=== PATIENT | male | born 1955 | race Caucasian/White ===

== ENCOUNTER → 2016-05-07 | Outpatient (REF) | payer OTHER ==
[~2016-05-07] MED LIST: /ADVA50050 INH; /WARF25TA OR; ADV250INH INH; ALBU17IN INH; AUGM875T27 PO; FLUT22IN INH; PERCOCET OR; TYLE325T5 PO; [UNRECOGNIZED DRUG - OTHER] PO
[2016-05-07 17:49] LABS: ALBUMIN 4.2 GM/DL (3.2-5.2); ALBUMIN/GLOBULIN RATIO 1.24 (1.00-1.93); ALKALINE PHOSPHATASE 66 U/L (45-117); ALT/SGPT 37 U/L (12-78); ANION GAP 9 MEQ/L (8-16); AST/SGOT 28 U/L (15-37); BLOOD UREA NITROGEN 11 MG/DL (7-18); CALCIUM LEVEL 9.1 MG/DL (8.8-10.2); CARBON DIOXIDE LEVEL 29 MEQ/L (21-32); CHLORIDE LEVEL 103 MEQ/L (98-107); CHOLESTEROL LEVEL 210 MG/DL (<200); CREATININE FOR GFR 1.04 MG/DL (0.70-1.30); GLOMERULAR FILTRATION RATE > 60.0 (>49); GLUCOSE, FASTING 97 MG/DL (80-110); POTASSIUM SERUM 4.6 MEQ/L (3.5-5.1); SODIUM LEVEL 141 MEQ/L (136-145); TOTAL PROTEIN 7.6 GM/DL (6.4-8.2); TRIGLYCERIDES LEVEL 71 MG/DL (<150)
== END ==
LOC: M SFHCCLAY 09:43
PROVIDERS: ATTEND Family Medicine
DX: Z00.00 Encounter for general adult medical examination without abnormal findings (principal)

== ENCOUNTER → 2017-05-10 | Outpatient (REF) | payer OTHER ==
[2017-05-10 12:11] LABS: ALBUMIN/GLOBULIN RATIO 1.18 (1.00-1.93); ALKALINE PHOSPHATASE 50 U/L (45-117); ALT/SGPT 32 U/L (12-78); ANION GAP 6 MEQ/L (8-16); AST/SGOT 27 U/L (7-37); BILIRUBIN,TOTAL 0.9 MG/DL (0.2-1.0); BLOOD UREA NITROGEN 9 MG/DL (7-18); CALCIUM LEVEL 8.6 MG/DL (8.8-10.2); CARBON DIOXIDE LEVEL 29 MEQ/L (21-32); CHLORIDE LEVEL 104 MEQ/L (98-107); CHOLESTEROL LEVEL 185 MG/DL (<200); CHOLESTEROL RISK RATIO 2.534 (<5); CREATININE FOR GFR 0.88 MG/DL (0.70-1.30); GLOMERULAR FILTRATION RATE > 60.0 (>49); GLUCOSE, FASTING 94 MG/DL (80-110); HDL CHOLESTEROL 73 MG/DL (>40); LDL CHOLESTEROL 100.8 MG/DL (<100); NON-HDL-C 112 MG/DL; POTASSIUM SERUM 4.9 MEQ/L (3.5-5.1); PSA SCREENING 2.13 NG/ML (< 4.0); SODIUM LEVEL 139 MEQ/L (136-145); TOTAL PROTEIN 7.4 GM/DL (6.4-8.2); TRIGLYCERIDES LEVEL 56 MG/DL (<150)
== END ==
LOC: M SFHCCLAY 09:30
DX: Z00.00 Encounter for general adult medical examination without abnormal findings (principal)
CPT/HCPCS: 84153

== ENCOUNTER → 2018-05-08 | Outpatient (REF) | payer BC ==
[2018-05-08 17:11] LABS: ALBUMIN 4.1 GM/DL (3.2-5.2); ALT/SGPT 39 U/L (12-78); BLOOD UREA NITROGEN 10 MG/DL (7-18); CALCIUM LEVEL 8.7 MG/DL (8.8-10.2); CARBON DIOXIDE LEVEL 28 MEQ/L (21-32); CHLORIDE LEVEL 103 MEQ/L (98-107); CHOLESTEROL LEVEL 204 MG/DL (<200); CREATININE FOR GFR 0.92 MG/DL (0.70-1.30); GLOMERULAR FILTRATION RATE > 60.0 (>49); GLUCOSE, FASTING 93 MG/DL (70-100); HDL CHOLESTEROL 85 MG/DL (>40); LDL CHOLESTEROL 107 MG/DL (<100); NON-HDL-C 119 MG/DL; POTASSIUM SERUM 4.7 MEQ/L (3.5-5.1); SODIUM LEVEL 138 MEQ/L (136-145); TOTAL PROTEIN 7.7 GM/DL (6.4-8.2); TRIGLYCERIDES LEVEL 58 MG/DL (<150)
== END ==
LOC: M SFHCCLAY 10:29
PROVIDERS: ATTEND Family Medicine
DX: Z00.00 Encounter for general adult medical examination without abnormal findings (principal)
CPT/HCPCS: 80053; 80061; G0103

== ENCOUNTER 2018-07-04 08:33 | Day surgery (SDC) | payer BC ==
[~2018-07-04] VITALS: Ht 180.3 cm; Wt 86.2 kg
[~2018-07-04 08:33] MED LIST changes: +ADV500INH INH; +BALS75CA PO; +FLUT11IN INH; +LIDOCAINE 2% INJ 100 MG/5 ML SDV (FOR ANES.) As Ordered ONE; +PROPOFOL 200 MG/20 ML VIAL As Ordered ONE
[2018-07-04] MEDS ORDERED: NS 1,000 ML IV ONE (08:45)
--- NOTE | 2018-07-04 09:28 | ROOR ---
Patient Name: Elmer Quarles Procedure Date: 07/04/2018 9:06 AM Date of : 1955 Age: 62 Room: [facility] Gender: Male Note Status: Finalized Procedure: Colonoscopy Indications: Follow-up of chronic ulcerative proctosigmoiditis Providers: Henrique BUCHANAN MD Referring MD: MARY ROBISON DO Requestelijah Provider: Medicines: Monitored Anesthesia Care Complications: No immediate complications. Procedure: Pre-Anesthesia Assessment: - The heart rate, respiratory rate, oxygen saturations, blood pressure, adequacy of pulmonary ventilation, and response to care were monitored throughout the procedure. The Colonoscope was introduced through the anus and advanced to 10 cm into the ileum. The colonoscopy was performed without difficulty. The patient tolerated the procedure well. The quality of the bowel preparation was good. Findings: The perianal and digital rectal examinations were normal. The terminal ileum appeared normal. Inflammation was found in a continuous and circumferential pattern from the anus to the descending colon. This was mild in severity, and when compared to previous examinations, the findings are worsened. Biopsies were taken with a cold forceps for histology. The exam was otherwise without abnormality on direct and retroflexion views. Impression: - Proctosigmoid ulcerative colitis. Inflammation was found from the anus to the descending colon. This was mild in severity, worsened compared to previous examinations. Biopsied. - Mild diverticulosis in the descending colon. - The examination of the colon was otherwise normal on direct and retroflexion views. - The examined portion of the ileum was normal. Recommendation: - Repeat colonoscopy in 2 years for surveillance. Henrique Buchanan MD Henrique BUCHANAN MD 07/04/2018 9:28:19 AM This report has been signed electronically. Number of Addenda: 0 Note Initiated On: 07/04/2018 9:06 AM Estimated Blood Loss: Estimated blood loss: none.
[2018-07-04 09:45] VITALS: BP 191/97
== END 2018-07-04 10:05 | disposition home or self-care (01) ==
LOC: M OPP 08:33
PROVIDERS: ATTEND Internal Medicine Gastroenterology
DX: K51.30 Ulcerative (chronic) rectosigmoiditis without complications (principal)

== ENCOUNTER → 2018-09-01 | Outpatient (REF) | payer BC ==
[~2018-09-01] MED LIST changes: -/ADVA50050 INH; -/WARF25TA OR; +ADVA1AER2 INH; +COUM1TAB18 OR; -LIDOCAINE 2% INJ 100 MG/5 ML SDV (FOR ANES.) As Ordered ONE; +OXYC1TAB23 OR; -PERCOCET OR; -PROPOFOL 200 MG/20 ML VIAL As Ordered ONE
== END ==
LOC: M LAB LCGH 13:46
PROVIDERS: ATTEND Physician Assistant
DX: L57.0 Actinic keratosis (principal)

== ENCOUNTER → 2018-09-15 | Outpatient (CLI) | payer BC ==
--- NOTE | 2018-09-15 18:01 | REP ---
REASON: Left sided foot pain and foot drop. COMPARISON: None. The ankle brachial index is 1.2. [facility] 108.0 cm/s triphasic Profunda 69.3 cm/s triphasic SFA proximal 102.0 cm/s triphasic SFA mid 112.0 cm/s triphasic SFA distal 93.8 cm/s triphasic Popliteal 51.9 cm/s triphasic REGGIE proximal 56.8 cm/s monophasic Tibioperoneal trunk 99.4 cm/s triphasic Posterior tibial artery proximal 77.0 cm/s triphasic Distal 75.8 cm/s biphasic Anterior tibial artery distal 54.5 cm/s biphasic Electronically Signed by Alberto Huitron DO 09/15/2018 06:10 P
== END ==
LOC: M RAD 12:52
PROVIDERS: ATTEND Surgery Vascular Surgery
DX: M79.605 Pain in left leg (principal); M21.372 Foot drop, left foot

== ENCOUNTER → 2018-11-23 | Outpatient (CLI) | payer BC ==
--- NOTE | 2018-11-27 13:45 | REP ---
Low-dose lung screening CT of the chest: Comparison is the CT of the chest with IV contrast dated 08/12/2009. The study is performed without IV contrast. Images are presented at lung windowing only. There are no lung masses or nodules. This is unchanged. There are no infiltrates or pleural effusions. This is unchanged. There is a right hilar calcified granuloma. This is unchanged. Impression: Category 1 low-dose lung screening CT. The probability of malignancy is less than 1%. Depending on risk factors, consider annual follow-up low-dose lung screening CT. Electronically Signed by Doroteo Benito MD 11/27/2018 01:36 P
== END ==
LOC: M RAD 12:55
PROVIDERS: ATTEND Family Medicine
DX: Z12.2 Encounter for screening for malignant neoplasm of respiratory organs (principal); Z87.891 Personal history of nicotine dependence

== ENCOUNTER → 2019-02-16 | Outpatient (REF) | payer BC ==
[2019-02-16 18:57] LABS: BASO # 0.1 10^3/uL (0.0-0.2); BASO % 0.8 % (0.0-1.0); EOS # 0.2 10^3/uL (0.0-0.5); EOS % 1.9 % (0.0-3.0); HEMATOCRIT 47.3 % (42.0-52.0); HEMOGLOBIN 15.6 g/dl (13.5-17.5); LYMPH # 2.6 10^3/uL (1.5-5.0); LYMPH % 26.2 % (24.0-44.0); MEAN CORPUSCULAR HEMOGLOBIN 34.1 pg (27.0-33.0); MEAN CORPUSCULAR VOLUME 103.3 fl (80.0-96.0); MONO # 0.7 10^3/uL (0.0-0.8); NEUTROPHILS # 6.3 10^3/uL (1.5-8.5); NEUTROPHILS % 62.9 % (36.0-66.0); PLATELET COUNT, AUTOMATED 322 10^3/uL (150-450); RED BLOOD COUNT 4.58 10^6/uL (4.30-6.10)
[2019-02-16 19:04] LABS: ALBUMIN 3.9 GM/DL (3.2-5.2); ALT/SGPT 33 U/L (12-78); BILIRUBIN,TOTAL 0.7 MG/DL (0.2-1.0); BLOOD UREA NITROGEN 15 MG/DL (7-18); C REACTIVE PROTEIN QUANTITATIV 0.34 MG/DL (0.00-0.30); CALCIUM LEVEL 9.1 MG/DL (8.8-10.2); CARBON DIOXIDE LEVEL 30 MEQ/L (21-32); CHLORIDE LEVEL 105 MEQ/L (98-107); CREATININE FOR GFR 0.99 MG/DL (0.70-1.30); GLOMERULAR FILTRATION RATE > 60.0 (>49); GLUCOSE, FASTING 111 MG/DL (70-100); POTASSIUM SERUM 4.9 MEQ/L (3.5-5.1); RHEUMATOID FACTOR QUANT < 10.0 IU/ML (<15.0); SODIUM LEVEL 138 MEQ/L (136-145); TOTAL PROTEIN 7.2 GM/DL (6.4-8.2)
[2019-02-16 19:35] LABS: ERYTHROCYTE SEDIMENTATION RATE 2 mm/hr (0-20)
[2019-02-20 00:11] LABS: ANA (HEP2) Positive (.); CYCLIC CITRULLINATED PEPTIDE 8 units (0-19)
== END ==
LOC: M SFHCCLAY 11:11
PROVIDERS: ATTEND Family Medicine
DX: I10 Essential (primary) hypertension (principal); M25.541 Pain in joints of right hand

== ENCOUNTER → 2019-02-16 | Outpatient (CLI) | payer BC ==
--- NOTE | 2019-02-16 13:49 | REP ---
REASON: Hand pain. COMPARISON: 04/02/2015 There is no change in the appearance of the right hand compared to the prior exam. There is no acute abnormality. In a couple of phalangeal joints, degenerative change is again seen involving the 3rd digit, status quo. There is no prominent marginal osteophytosis. There are no marginal erosions. There is no periarticular osteopenia. IMPRESSION: No significant change from the prior exam other than technique with degenerative changes as described above. Electronically Signed by Alberto Huitron DO 02/16/2019 04:17 P
== END ==
LOC: M CLY 11:32
PROVIDERS: ATTEND Family Medicine
DX: M25.541 Pain in joints of right hand (principal)

== ENCOUNTER → 2019-11-06 | Outpatient (REF) | payer MEDICARE, BC ==
[2019-11-06 16:56] LABS: BASO # 0.1 10^3/uL (0.0-0.2); BASO % 0.6 % (0.0-1.0); EOS # 0.1 10^3/uL (0.0-0.5); EOS % 1.3 % (0.0-3.0); HEMATOCRIT 47.3 % (42.0-52.0); HEMOGLOBIN 15.8 g/dl (13.5-17.5); LYMPH # 2.6 10^3/uL (1.5-5.0); LYMPH % 25.2 % (24.0-44.0); MEAN CORPUSCULAR HEMOGLOBIN 33.2 pg (27.0-33.0); MEAN CORPUSCULAR HGB CONC 33.4 g/dl (32.0-36.5); MEAN CORPUSCULAR VOLUME 99.4 fl (80.0-96.0); MONO # 0.8 10^3/uL (0.0-0.8); MONO % 8.2 % (0.0-5.0); NEUTROPHILS # 6.5 10^3/uL (1.5-8.5); NEUTROPHILS % 63.5 % (36.0-66.0); PLATELET COUNT, AUTOMATED 360 10^3/uL (150-450); RED BLOOD COUNT 4.76 10^6/uL (4.30-6.10); WHITE BLOOD COUNT 10.2 10^3/uL (4.0-10.0)
[2019-11-06 17:15] LABS: ALBUMIN 3.9 GM/DL (3.2-5.2); ALT/SGPT 43 U/L (12-78); BILIRUBIN,TOTAL 1.3 MG/DL (0.2-1.0); BLOOD UREA NITROGEN 9 MG/DL (7-18); CALCIUM LEVEL 9.2 MG/DL (8.8-10.2); CARBON DIOXIDE LEVEL 29 MEQ/L (21-32); CHLORIDE LEVEL 105 MEQ/L (98-107); CHOLESTEROL LEVEL 187 MG/DL (<200); CHOLESTEROL RISK RATIO 2.968 (<5); CREATININE FOR GFR 0.91 MG/DL (0.70-1.30); GLOMERULAR FILTRATION RATE > 60.0 (>49); GLUCOSE, FASTING 97 MG/DL (70-100); HDL CHOLESTEROL 63 MG/DL (>40); LDL CHOLESTEROL 101 MG/DL (<100); NON-HDL-C 124 MG/DL; SODIUM LEVEL 137 MEQ/L (136-145); TOTAL PROTEIN 7.2 GM/DL (6.4-8.2); TRIGLYCERIDES LEVEL 117 MG/DL (<150)
== END ==
LOC: M SFHCCLAY 10:30
PROVIDERS: ATTEND Family Medicine
DX: K51.00 Ulcerative (chronic) pancolitis without complications (principal); I10 Essential (primary) hypertension; E78.2 Mixed hyperlipidemia; Z98.890 Other specified postprocedural states

== ENCOUNTER → 2020-03-17 | Outpatient (CLI) | payer MEDICARE, BC ==
--- NOTE | 2020-03-17 14:02 | REP ---
INDICATION: ENCOUNTER FOR SCREENING FOR LUNG CA. COMPARISON: 11/23/2018 and 08/12/2009 TECHNIQUE: Axial noncontrast images from the thoracic inlet to the upper abdomen using low-dose lung screening technique (LDCT). As per the protocol, only lung window images were sent to the read station for interpretation. FINDINGS: A 4 mm sized pleural base nodule has developed in the left lower lobe. A discoid opacity has developed in the inferior right middle lobe. Limited evaluation of the mediastinum and pulmonary sarah show no significant changes from the prior exams. Limited evaluation of the imaged upper abdomen and imaged osseous structures show no significant changes from the prior exams. There are no pleural or pericardial effusions. Early cylindrical bronchiectasis may be developing. This is seen particularly in the lung bases. IMPRESSION: 1. Left lower lobe nodule as described above. Lung rads category 3. Follow-up is recommended in 6 months as per the revised Fleischner society criteria. 2. Discoid opacity in the right middle lobe likely representing subsegmental atelectatic change. This can be followed up in 6 months as well. <Electronically signed by Alberto Huitron > 03/17/20 [id number]
== END ==
LOC: M RAD 12:57
PROVIDERS: ATTEND Family Medicine
DX: Z12.2 Encounter for screening for malignant neoplasm of respiratory organs (principal); R91.1 Solitary pulmonary nodule; Z87.891 Personal history of nicotine dependence

== ENCOUNTER → 2020-09-16 | Outpatient (CLI) | payer MEDICARE, BC ==
--- NOTE | 2020-09-16 15:11 | REP ---
INDICATION: LT LOWER LOBE PULMONARY NODULE COMPARISON: Multiple TECHNIQUE: Standard helical technique without intravenous contrast administration FINDINGS: Limited evaluation of the mediastinum and pulmonary sarah show no evidence of a mass or adenopathy. There are no pleural or pericardial effusions. The imaged upper abdomen shows cholelithiasis and diffuse low density throughout the hepatic parenchyma. Bone window technique throughout the examination shows a slight grade 1 superior endplate compression deformity of T6. The age of this cannot be determined by this exam. It cannot be compared to the prior low-dose screening CT examinations of the lungs. Since no sagittal recons were performed on the standard CT of the chest of 08/12/2009 I cannot compared to that examination either. Evaluation of the lung cabezas shows no new abnormal nodules, masses, or opacities. There are stable chronic subsegmental atelectatic changes in the inferior right middle lobe status quo. IMPRESSION: 1. Cholelithiasis. 2. Diffuse fatty infiltration of the liver. 3. Age undetermined mild grade 1 superior endplate compression deformity of T6 as described above. 4. Stable lung cabezas. Lung rads category 2 can now be assigned. <Electronically signed by Alberto Huitron > 09/16/20 [id number]
== END ==
LOC: M RAD 14:40
PROVIDERS: ATTEND Family Medicine
DX: R91.1 Solitary pulmonary nodule (principal)

== ENCOUNTER → 2020-11-11 | Outpatient (REF) | payer MEDICARE, BC ==
[2020-11-11 16:21] LABS: BASO # 0.1 10^3/uL (0.0-0.2); BASO % 0.8 % (0.0-1.0); EOS # 0.2 10^3/uL (0.0-0.5); EOS % 1.6 % (0.0-3.0); HEMATOCRIT 46.5 % (42.0-52.0); HEMOGLOBIN 15.4 g/dl (13.5-17.5); LYMPH # 3.2 10^3/uL (1.5-5.0); LYMPH % 25.8 % (24.0-44.0); MEAN CORPUSCULAR HEMOGLOBIN 32.7 pg (27.0-33.0); MEAN CORPUSCULAR HGB CONC 33.1 g/dl (32.0-36.5); MEAN CORPUSCULAR VOLUME 98.7 fl (80.0-96.0); MONO # 0.9 10^3/uL (0.0-0.8); MONO % 7.6 % (2.0-8.0); NEUTROPHILS # 7.7 10^3/uL (1.5-8.5); NEUTROPHILS % 62.8 % (36.0-66.0); PLATELET COUNT, AUTOMATED 323 10^3/uL (150-450); RED BLOOD COUNT 4.71 10^6/uL (4.30-6.10); WHITE BLOOD COUNT 12.2 10^3/uL (4.0-10.0)
[2020-11-11 16:37] LABS: ALBUMIN 3.8 GM/DL (3.2-5.2); ALT/SGPT 48 U/L (12-78); BILIRUBIN,TOTAL 0.7 MG/DL (0.2-1.0); BLOOD UREA NITROGEN 9 MG/DL (7-18); CALCIUM LEVEL 8.8 MG/DL (8.8-10.2); CARBON DIOXIDE LEVEL 26 MEQ/L (21-32); CHLORIDE LEVEL 105 MEQ/L (98-107); CHOLESTEROL LEVEL 187 MG/DL (<200); CHOLESTEROL RISK RATIO 3.339 (<5); CREATININE FOR GFR 0.88 MG/DL (0.70-1.30); GLOMERULAR FILTRATION RATE > 60.0 (>49); GLUCOSE, FASTING 88 MG/DL (70-100); HDL CHOLESTEROL 56 MG/DL (>40); LDL CHOLESTEROL 111 MG/DL (<100); NON-HDL-C 131 MG/DL; POTASSIUM SERUM 5.4 MEQ/L (3.5-5.1); SODIUM LEVEL 137 MEQ/L (136-145); TOTAL PROTEIN 7.2 GM/DL (6.4-8.2); TRIGLYCERIDES LEVEL 101 MG/DL (<150)
== END ==
LOC: M SFHCCLAY 11:25
PROVIDERS: ATTEND Family Medicine
DX: E78.2 Mixed hyperlipidemia (principal); I10 Essential (primary) hypertension; Z12.5 Encounter for screening for malignant neoplasm of prostate
CPT/HCPCS: 80053; 80061; 85025; G0103

== ENCOUNTER → 2020-11-19 | Outpatient (REF) | payer MEDICARE, BC | LOC: M SMT 16:42 | PROVIDERS: ATTEND Nurse Practitioner Family | DX: N39.0 Urinary tract infection, site not specified (principal) | CPT/HCPCS: 87086; G0463 ==

== ENCOUNTER → 2020-12-02 | Outpatient (CLI) | payer MEDICARE, BC ==
--- NOTE | 2020-12-02 12:39 | REPPI ---
INDICATION: ELEVATED PSA. COMPARISON: None. TECHNIQUE: Transrectal prostate ultrasound performed, with ultrasound guidance provided for Dr. Farley who performed ultrasound-guided biopsy. FINDINGS: Prostate measures 4.2 x 2.6 x 4.3 cm, total volume 25.1 mL. Echotexture is diffusely heterogeneous with scattered small cysts and calcifications. No peripheral zone mass is seen. The seminal vesicles appear symmetrical. IMPRESSION: Prostate ultrasound as above, ultrasound guidance was provided for Dr. Farley who performed ultrasound-guided biopsy of the prostate. <Electronically signed by Doroteo Monk > 12/02/20 [id number]
== END ==
LOC: M PLAIMG 09:55
PROVIDERS: ATTEND Urology
DX: C61 Malignant neoplasm of prostate (principal)
CPT/HCPCS: 55700; 76942; G0416

== ENCOUNTER → 2021-01-19 | Outpatient (REF) | payer MEDICARE, BC | LOC: M LAB REF 14:11 | PROVIDERS: ATTEND Physician Assistant | DX: C44.622 Squamous cell carcinoma of skin of right upper limb, including shoulder (principal); D49.2 Neoplasm of unspecified behavior of bone, soft tissue, and skin | CPT/HCPCS: 11102; 88305; G0463 ==

== ENCOUNTER → 2021-04-01 | Outpatient (REF) | payer MEDICARE, BC | LOC: M SFHCCLAY 10:21 | PROVIDERS: ATTEND Urology | DX: C61 Malignant neoplasm of prostate (principal) ==

== ENCOUNTER → 2021-07-02 | Outpatient (REF) | payer MEDICARE, BC | LOC: M SFHCCLAY 10:17 | PROVIDERS: ATTEND Urology | DX: C61 Malignant neoplasm of prostate (principal) ==

== ENCOUNTER → 2021-09-22 | Outpatient (CLI) | payer MEDICARE, BC | LOC: M RAD 13:04 | PROVIDERS: ATTEND Family Medicine | DX: R91.1 Solitary pulmonary nodule (principal); I70.0 Atherosclerosis of aorta; K80.20 Calculus of gallbladder without cholecystitis without obstruction; K76.0 Fatty (change of) liver, not elsewhere classified ==

== ENCOUNTER → 2021-10-13 | Outpatient (REF) | payer MEDICARE, BC | LOC: M SFHCCLAY 10:34 | PROVIDERS: ATTEND Urology | DX: C61 Malignant neoplasm of prostate (principal) ==

== ENCOUNTER → 2021-11-23 | Outpatient (CLI) | payer MEDICARE, BC | LOC: M CLY 13:49 | PROVIDERS: ATTEND Family Medicine | DX: M79.672 Pain in left foot (principal); M77.32 Calcaneal spur, left foot ==

== ENCOUNTER → 2022-01-06 | Outpatient (REF) | payer MEDICARE, BC ==
[2022-01-06 17:51] LABS: BASO # 0.1 10^3/uL (0.0-0.2); BASO % 0.8 % (0.0-1.0); EOS # 0.2 10^3/uL (0.0-0.5); HEMATOCRIT 46.6 % (42.0-52.0); HEMOGLOBIN 15.6 g/dl (13.5-17.5); LYMPH # 3.4 10^3/uL (1.5-5.0); MEAN CORPUSCULAR HEMOGLOBIN 33.3 pg (27.0-33.0); MEAN CORPUSCULAR HGB CONC 33.5 g/dl (32.0-36.5); MEAN CORPUSCULAR VOLUME 99.4 fl (80.0-96.0); MONO % 8.4 % (2.0-8.0); NEUTROPHILS # 7.2 10^3/uL (1.5-8.5); NEUTROPHILS % 59.8 % (36.0-66.0); PLATELET COUNT, AUTOMATED 313 10^3/uL (150-450); RED BLOOD COUNT 4.69 10^6/uL (4.30-6.10)
[2022-01-06 18:30] LABS: ALBUMIN 3.6 GM/DL (3.2-5.2); ALT/SGPT 38 U/L (12-78); BILIRUBIN,TOTAL 0.5 MG/DL (0.2-1.0); BLOOD UREA NITROGEN 13 MG/DL (7-18); CARBON DIOXIDE LEVEL 28 MEQ/L (21-32); CHLORIDE LEVEL 104 MEQ/L (98-107); CHOLESTEROL LEVEL 191 MG/DL (<200); CHOLESTEROL RISK RATIO 4.658 (<5); CREATININE FOR GFR 0.99 MG/DL (0.70-1.30); GLOMERULAR FILTRATION RATE > 60.0 (>49); GLUCOSE, FASTING 96 MG/DL (70-100); HDL CHOLESTEROL 41 MG/DL (>40); LDL CHOLESTEROL 83 MG/DL (<100); NON-HDL-C 150 MG/DL; POTASSIUM SERUM 5.4 MEQ/L (3.5-5.1); PROSTATIC SPECIFIC AG MONITOR 2.59 NG/ML (< 4.00); SODIUM LEVEL 134 MEQ/L (136-145); TOTAL PROTEIN 6.9 GM/DL (6.4-8.2); TRIGLYCERIDES LEVEL 333 MG/DL (<150)
== END ==
LOC: M SFHCCLAY 10:12
PROVIDERS: ATTEND Urology
DX: C61 Malignant neoplasm of prostate (principal); I10 Essential (primary) hypertension; E78.2 Mixed hyperlipidemia

== ENCOUNTER → 2022-01-26 | Outpatient (REF) | payer MEDICARE, BC | LOC: M SMT 12:54 | PROVIDERS: ATTEND Urology | DX: C61 Malignant neoplasm of prostate (principal) ==

== ENCOUNTER → 2022-02-19 | Outpatient (REF) | payer MEDICARE, BC ==
[~2022-02-19] MED LIST changes: +BACT800T5 PO; +COLA100C5 PO; +FLUT1INH3 INH; +GING250C PO; +LOSA100T45 PO; +PERCOCET PO; +PROP40TA62 PO; +VENTAER INH
[2022-02-19 11:41] LABS: HEMATOCRIT 47.2 % (42.0-52.0); HEMOGLOBIN 15.8 g/dl (13.5-17.5); MEAN CORPUSCULAR HEMOGLOBIN 33.7 pg (27.0-33.0); MEAN CORPUSCULAR HGB CONC 33.5 g/dl (32.0-36.5); MEAN CORPUSCULAR VOLUME 100.6 fl (80.0-96.0); PLATELET COUNT, AUTOMATED 334 10^3/uL (150-450); RED BLOOD COUNT 4.69 10^6/uL (4.30-6.10); WHITE BLOOD COUNT 9.6 10^3/uL (4.0-10.0)
[2022-02-19 11:51] LABS: INR 0.94; PROTHROMBIN TIME 12.8 SECONDS (12.5-14.5)
[2022-02-19 11:52] LABS: PARTIAL THROMBOPLASTIN TIME 27.2 SECONDS (24.8-34.2)
[2022-02-19 12:13] LABS: BLOOD UREA NITROGEN 10 MG/DL (7-18); CALCIUM LEVEL 9.4 MG/DL (8.8-10.2); CARBON DIOXIDE LEVEL 29 MEQ/L (21-32); CHLORIDE LEVEL 106 MEQ/L (98-107); CREATININE FOR GFR 0.81 MG/DL (0.70-1.30); GLOMERULAR FILTRATION RATE > 60.0 (>49); GLUCOSE, FASTING 101 MG/DL (70-100); POTASSIUM SERUM 5.4 MEQ/L (3.5-5.1); SODIUM LEVEL 138 MEQ/L (136-145)
== END ==
LOC: M LABSMT 09:25
PROVIDERS: ATTEND Urology
DX: Z01.818 Encounter for other preprocedural examination (principal); C61 Malignant neoplasm of prostate

== ENCOUNTER → 2022-02-19 | Outpatient (CLI) | payer MEDICARE, BC | LOC: M CLY 09:45 | PROVIDERS: ATTEND Urology | DX: Z01.818 Encounter for other preprocedural examination (principal); C61 Malignant neoplasm of prostate ==

== ENCOUNTER → 2022-02-23 | Outpatient (REF) | payer MEDICARE, BC | LOC: M LABSMT 09:46 | PROVIDERS: ATTEND Urology | DX: C61 Malignant neoplasm of prostate (principal); Z01.818 Encounter for other preprocedural examination; N39.0 Urinary tract infection, site not specified ==

== ENCOUNTER → 2022-02-28 | Outpatient (CLI) | payer MEDICARE, BC ==
[~2022-02-28] MED LIST changes: -BACT800T5 PO; -COLA100C5 PO; -PERCOCET PO
== END ==
LOC: M LABSMTC 10:28
PROVIDERS: ATTEND Anesthesiology
DX: Z01.812 Encounter for preprocedural laboratory examination (principal); Z20.822 Contact with and (suspected) exposure to COVID-19

== ENCOUNTER 2022-03-03 07:30 | Inpatient (IN) | payer MEDICARE, BC ==
[~2022-03-03] VITALS: Ht 177.8 cm; Wt 72.5 kg
[2022-03-03] VITALS (7 sets, daily range): BP systolic 132–144; BP diastolic 85–93
[~2022-03-03 07:30] MED LIST changes: +HEPARIN SOD (PORCINE) 5000UNITS/ML 1ML VIAL/SYRINGE SQ ONE; +ceFAZolin SOD 2 GM in IV 1 EA IV ONE
[2022-03-03] MEDS ORDERED: propofoL 200 MG/20 ML VIAL As Ordered ONE (10:02)
[2022-03-03] MEDS ORDERED: LIDOCAINE 2% 100MG/5ML SDV (FOR ANES.) As Ordered ONE (10:02)
[2022-03-03] MEDS ORDERED: fentaNYL 250 MCG/5 ML INJECTION As Ordered ONE (10:02)
[2022-03-03] MEDS ORDERED: MIDAZOLAM INJ 2MG/2ML VIAL (J2250 PER 1MG) As Ordered ONE (10:02)
[2022-03-03] MEDS ORDERED: ROCURONIUM BROMIDE 50 MG/5 ML VIAL As Ordered ONE ×2 (10:02→11:50)
[2022-03-03] MEDS ORDERED: METOCLOPRAMIDE INJ 10MG/2ML VIAL (J2765 PER 1) As Ordered ONE (10:10)
[2022-03-03] MEDS ORDERED: LR 1,000 ML IV SCH ×2 (10:15→14:20)
[2022-03-03] MEDS ORDERED: LIDOCAINE 1% SDV 30ML VIAL As Ordered ONE (10:42)
[2022-03-03] MEDS ORDERED: BUPIVACAINE HCL 0.25% 30ML VIAL As Ordered ONE (10:42)
[2022-03-03] MEDS ORDERED: ACETAMINOPHEN TAB 650MG DOSE (2X325MG) PO PRN (10:50)
[2022-03-03] MEDS ORDERED: NS 1,000 ML IV SCH (10:50)
[2022-03-03] MEDS ORDERED: ALBUTEROL 90 MCG/ACT 8GM HFA INHALER INH PRN (10:50)
[2022-03-03] MEDS ORDERED: ONDANSETRON 4MG 2ML VIAL IV PRN ×2 (10:50→14:20)
[2022-03-03] MEDS ORDERED: PERCOCET 5MG/325MG TAB PO PRN ×2 (10:50)
[2022-03-03] MEDS ORDERED: LACRILUBE (AKWA TEARS) OPHTH OINT 3.5 GM As Ordered ONE (11:12)
[2022-03-03] MEDS ORDERED: dexameTHASONE 4 MG/ML 1ML VIAL (J1100 PER 1MG) As Ordered ONE (11:49)
[2022-03-03] MEDS ORDERED: ONDANSETRON 4MG 2ML VIAL As Ordered ONE (11:49)
[2022-03-03] MEDS ORDERED: SUGAMMADEX SODIUM 500 MG/5 ML VIAL (BRIDION) As Ordered ONE (11:49)
[2022-03-03] MEDS ORDERED: KETOROLAC 60MG 2ML VIAL As Ordered ONE (11:49)
[2022-03-03] MEDS ORDERED: ACETAMINOPHEN 1000MG 100ML IV BTL (OFIRMEV) (J0131 PER 10MG) As Ordered ONE (11:49)
[2022-03-03] MEDS ORDERED: HYDROmorphone HCL 2MG/ML 1ML VIAL As Ordered ONE (11:50)
[2022-03-03] MEDS ORDERED: DESFLURANE 240 ML INHALANT As Ordered ONE (13:39)
[2022-03-03] MEDS ORDERED: fentaNYL 100 MCG/2 ML INJECTION IV PRN (14:20)
[2022-03-03] MEDS ORDERED: oxyCODONE 5MG TAB PO PRN (14:20)
[2022-03-03] MEDS ORDERED: HYDROMORPHONE HCL 0.5 MG/ 0.5 ML SYRINGE (J1170 PER 1) IV PRN (14:20)
[2022-03-03 14:55] LABS: HEMATOCRIT 43.3 % (42.0-52.0); MEAN CORPUSCULAR HEMOGLOBIN 33.3 pg (27.0-33.0); MEAN CORPUSCULAR HGB CONC 32.3 g/dl (32.0-36.5); MEAN CORPUSCULAR VOLUME 103.1 fl (80.0-96.0); PLATELET COUNT, AUTOMATED 269 10^3/uL (150-450); WHITE BLOOD COUNT 12.4 10^3/uL (4.0-10.0)
[2022-03-03 15:57] LABS: BLOOD UREA NITROGEN 12 MG/DL (7-18); CALCIUM LEVEL 8.7 MG/DL (8.8-10.2); CARBON DIOXIDE LEVEL 27 MEQ/L (21-32); CHLORIDE LEVEL 104 MEQ/L (98-107); GLOMERULAR FILTRATION RATE > 60.0 (>49); GLUCOSE, FASTING 126 MG/DL (70-100); POTASSIUM SERUM 4.7 MEQ/L (3.5-5.1); SODIUM LEVEL 135 MEQ/L (136-145)
[2022-03-03] MEDS: ceFAZolin SOD 1 GM in D5W MINI-BAG PLUS 50 ML IV SCH (18:44)
[2022-03-03] MEDS ORDERED: ENTER DRUG NAME HERE (PATIENT'S OWN MED) PO SCH (21:00)
[2022-03-03] MEDS: DOCUSATE SODIUM 100MG CAPSULE PO SCH (21:37)
[2022-03-03] MEDS: HEPARIN SOD (PORCINE) 5000UNITS/ML 1ML VIAL/SYRINGE SC SCH (21:38)
[2022-03-04 00:38] VITALS: BP 127/86
[2022-03-04] MEDS: ceFAZolin SOD 1 GM in D5W MINI-BAG PLUS 50 ML IV SCH (03:36)
[2022-03-04 04:38] VITALS: BP 136/83
[2022-03-04] MEDS: HEPARIN SOD (PORCINE) 5000UNITS/ML 1ML VIAL/SYRINGE SC SCH ×2 (06:02→14:00)
[2022-03-04 06:23] LABS: HEMATOCRIT 37.3 % (42.0-52.0); HEMOGLOBIN 12.6 g/dl (13.5-17.5); MEAN CORPUSCULAR HEMOGLOBIN 34.5 pg (27.0-33.0); MEAN CORPUSCULAR HGB CONC 33.8 g/dl (32.0-36.5); MEAN CORPUSCULAR VOLUME 102.2 fl (80.0-96.0); PLATELET COUNT, AUTOMATED 265 10^3/uL (150-450); RED BLOOD COUNT 3.65 10^6/uL (4.30-6.10); WHITE BLOOD COUNT 13.6 10^3/uL (4.0-10.0)
[2022-03-04 07:02] LABS: BLOOD UREA NITROGEN 12 MG/DL (7-18); CALCIUM LEVEL 8.3 MG/DL (8.8-10.2); CARBON DIOXIDE LEVEL 25 MEQ/L (21-32); CHLORIDE LEVEL 103 MEQ/L (98-107); CREATININE FOR GFR 0.86 MG/DL (0.70-1.30); GLOMERULAR FILTRATION RATE > 60.0 (>49); GLUCOSE, FASTING 130 MG/DL (70-100); POTASSIUM SERUM 4.5 MEQ/L (3.5-5.1); SODIUM LEVEL 135 MEQ/L (136-145)
[2022-03-04 08:00] VITALS: BP 137/84
[2022-03-04] MEDS: DOCUSATE SODIUM 100MG CAPSULE PO SCH ×2 (08:48→08:53)
[2022-03-04 08:49] VITALS: BP 136/83
[2022-03-04] MEDS ORDERED: LOSARTAN 50MG TABLET PO SCH (09:00)
[2022-03-04] MEDS ORDERED: PROPRANOLOL 20 MG TAB PO SCH (09:00)
[2022-03-04] MEDS ORDERED: ENTER DRUG NAME HERE (PATIENT'S OWN MED) INH SCH (09:00)
[2022-03-04 12:38] VITALS: BP 143/90
[2022-03-04] MEDS ORDERED: BACT800T5 PO (16:12)
[2022-03-04] MEDS ORDERED: PERCOCET PO (16:12)
[2022-03-04] MEDS ORDERED: COLA100C5 PO (16:12)
== END 2022-03-04 17:20 | disposition home or self-care (01) | DRG 707 ==
LOC: M OR 09:51 → M MSPAV 15:38
PROVIDERS: ADMIT Urology; ATTEND Urology
PROC: 07BC4ZX Excision of Pelvis Lymphatic, Percutaneous Endoscopic Approach, Diagnostic (ICD-10-PCS; 2022-03-03)
PROC: 8E0W4CZ Robotic Assisted Procedure of Trunk Region, Percutaneous Endoscopic Approach (ICD-10-PCS; 2022-03-03)
PROC: 0VT04ZZ Resection of Prostate, Percutaneous Endoscopic Approach (ICD-10-PCS; principal; 2022-03-03 12:30)
DX: C61 Malignant neoplasm of prostate (principal); K51.00 Ulcerative (chronic) pancolitis without complications; J44.9 Chronic obstructive pulmonary disease, unspecified; E78.5 Hyperlipidemia, unspecified; I10 Essential (primary) hypertension; R91.1 Solitary pulmonary nodule; Z90.49 Acquired absence of other specified parts of digestive tract; Z79.899 Other long term (current) drug therapy; Z87.891 Personal history of nicotine dependence; Z88.8 Allergy status to other drugs, medicaments and biological substances

== ENCOUNTER → 2022-04-05 | Outpatient (REF) | payer MEDICARE, BC ==
[~2022-04-05] MED LIST changes: +BACT800T5 PO; +COLA100C5 PO; -HEPARIN SOD (PORCINE) 5000UNITS/ML 1ML VIAL/SYRINGE SQ ONE; +PERCOCET PO; -ceFAZolin SOD 2 GM in IV 1 EA IV ONE
== END ==
LOC: M SFHCCLAY 10:02
PROVIDERS: ATTEND Physician Assistant
DX: C61 Malignant neoplasm of prostate (principal)

== ENCOUNTER → 2022-06-30 | Outpatient (REF) | payer MEDICARE, BC | LOC: M SFHCCLAY 10:02 | PROVIDERS: ATTEND Urology | DX: C61 Malignant neoplasm of prostate (principal) ==

== ENCOUNTER → 2022-09-28 | Outpatient (CLI) | payer MEDICARE, BC ==
[~2022-09-28] MED LIST changes: -LOSA100T45 PO; +LOSA100T46 PO
== END ==
LOC: M RAD 14:01
PROVIDERS: ATTEND Family Medicine
DX: R91.8 Other nonspecific abnormal finding of lung field (principal)

== ENCOUNTER → 2022-10-04 | Outpatient (REF) | payer MEDICARE, BC | LOC: M SFHCCLAY 10:11 | PROVIDERS: ATTEND Urology | DX: C61 Malignant neoplasm of prostate (principal) ==

== ENCOUNTER → 2022-10-28 | Outpatient (CLI) | payer MEDICARE, BC ==
[~2022-10-28] MED LIST changes: -FLUT11IN INH; +FLUT12AE6 INH; +PROHANCE 279.3MG/ML 15ML VIAL As Ordered ONE; +PROHANCE 279.3MG/ML 5ML VIAL As Ordered ONE
== END ==
LOC: M RAD 12:34
PROVIDERS: ATTEND Family Medicine
DX: K76.89 Other specified diseases of liver (principal); K76.0 Fatty (change of) liver, not elsewhere classified; D18.03 Hemangioma of intra-abdominal structures; N28.1 Cyst of kidney, acquired
CPT/HCPCS: 74183; A9576

== ENCOUNTER → 2023-01-04 | Outpatient (CLI) | payer BC, MEDICARE ==
[~2023-01-04] MED LIST changes: +FLUT1BLS8; +GABA-1171 PO; -PROHANCE 279.3MG/ML 15ML VIAL As Ordered ONE; -PROHANCE 279.3MG/ML 5ML VIAL As Ordered ONE
== END ==
LOC: M PLAIMG 11:07
PROVIDERS: ATTEND Physician Assistant
DX: M21.372 Foot drop, left foot (principal)

== ENCOUNTER 2023-01-11 07:45 | Day surgery (SDC) | payer MEDICARE, BC ==
[~2023-01-11] VITALS: Ht 175.3 cm; Wt 87.5 kg
[~2023-01-11 07:45] MED LIST changes: +NS 1,000 ML IV ONE
[2023-01-11] MEDS ORDERED: propofoL 200 MG/20 ML VIAL As Ordered ONE ×2 (09:06→09:19)
[2023-01-11 09:34] VITALS: TEMP 97.4
[2023-01-11 09:47] VITALS: BP 192/97; O2SAT 97
== END 2023-01-11 09:56 | disposition home or self-care (01) ==
LOC: M OPP 07:45
PROVIDERS: ATTEND Internal Medicine Gastroenterology
DX: K51.30 Ulcerative (chronic) rectosigmoiditis without complications (principal); K63.5 Polyp of colon; I10 Essential (primary) hypertension; K76.0 Fatty (change of) liver, not elsewhere classified; M19.90 Unspecified osteoarthritis, unspecified site; J44.9 Chronic obstructive pulmonary disease, unspecified; E73.9 Lactose intolerance, unspecified; G25.0 Essential tremor; M21.379 Foot drop, unspecified foot; Z85.46 Personal history of malignant neoplasm of prostate; Z96.641 Presence of right artificial hip joint; Z79.899 Other long term (current) drug therapy; Z80.42 Family history of malignant neoplasm of prostate; Z80.8 Family history of malignant neoplasm of other organs or systems

== ENCOUNTER → 2023-01-14 | Outpatient (REF) | payer MEDICARE, BC ==
[~2023-01-14] MED LIST changes: -NS 1,000 ML IV ONE
[2023-01-14 18:35] LABS: HEMOGLOBIN 15.4 g/dl (13.5-17.5); MEAN CORPUSCULAR HGB CONC 32.8 g/dl (32.0-36.5); MEAN CORPUSCULAR VOLUME 100.6 fl (80.0-96.0); PLATELET COUNT, AUTOMATED 320 10^3/uL (150-450); RED BLOOD COUNT 4.67 10^6/uL (4.30-6.10); WHITE BLOOD COUNT 10.1 10^3/uL (4.0-10.0)
[2023-01-14 18:48] LABS: PROSTATIC SPECIFIC AG MONITOR 0.04 NG/ML (< 4.00)
[2023-01-14 18:51] LABS: ALBUMIN 3.8 G/DL (3.2-5.2); ALKALINE PHOSPHATASE 74 U/L (46-116); ALT/SGPT 36 U/L (7.0-40); AST/SGOT 45 U/L (<34); BILIRUBIN,TOTAL 0.7 MG/DL (0.3-1.2); BLOOD UREA NITROGEN 8 MG/DL (9-23); CALCIUM LEVEL 9.2 MG/DL (8.3-10.6); CARBON DIOXIDE LEVEL 30 MMOL/L (20-31); CHLORIDE LEVEL 104 MMOL/L (98-107); CHOLESTEROL LEVEL 186 MG/DL (<200); CHOLESTEROL RISK RATIO 2.74 (<5); GLOMERULAR FILTRATION RATE > 60.0 (>49); GLUCOSE, FASTING 96 MG/DL (74-106); HDL CHOLESTEROL 67.8 MG/DL (>40); IRON (FE) 110 UG/DL (65-175); LDL CHOLESTEROL 94.2 MG/DL (<100); NON-HDL-C 118.2 MG/DL; POTASSIUM SERUM 5.8 MMOL/L (3.5-5.1); SODIUM LEVEL 140 MMOL/L (136-145); TOTAL PROTEIN 7.2 G/DL (5.7-8.2); TRIGLYCERIDES LEVEL 120 MG/DL (<150)
== END ==
LOC: M SFHCCLAY 10:21
PROVIDERS: ATTEND Urology
DX: I10 Essential (primary) hypertension (principal); C61 Malignant neoplasm of prostate; E78.2 Mixed hyperlipidemia; K76.0 Fatty (change of) liver, not elsewhere classified

== ENCOUNTER → 2023-01-20 | Outpatient (REF) | payer MEDICARE, BC ==
[2023-01-20 19:12] LABS: BLOOD UREA NITROGEN 9 MG/DL (9-23); CARBON DIOXIDE LEVEL 29 MMOL/L (20-31); CHLORIDE LEVEL 103 MMOL/L (98-107); CREATININE FOR GFR 0.83 MG/DL (0.70-1.30); GLOMERULAR FILTRATION RATE > 60.0 (>49); GLUCOSE, FASTING 103 MG/DL (74-106); POTASSIUM SERUM 4.9 MMOL/L (3.5-5.1); SODIUM LEVEL 139 MMOL/L (136-145)
== END ==
LOC: M SFHCCLAY 10:13
PROVIDERS: ATTEND Family Medicine
DX: I10 Essential (primary) hypertension (principal)

== ENCOUNTER → 2023-04-04 | Outpatient (REF) | payer MEDICARE, BC | LOC: M SFHCCLAY 10:14 | PROVIDERS: ATTEND Urology | DX: C61 Malignant neoplasm of prostate (principal) ==

== ENCOUNTER → 2023-07-18 | Outpatient (REF) | payer MEDICARE, BC | LOC: M SFHCCLAY 11:13 | PROVIDERS: ATTEND Urology | DX: C61 Malignant neoplasm of prostate (principal) ==

== ENCOUNTER → 2023-07-27 | Outpatient (REF) | payer MEDICARE, BC | LOC: M SFHCDERM 17:22 | PROVIDERS: ATTEND Physician Assistant | DX: L82.0 Inflamed seborrheic keratosis (principal) ==

== ENCOUNTER → 2023-10-10 | Outpatient (REF) | payer MEDICARE, BC | LOC: M SFHCCLAY 10:17 | PROVIDERS: ATTEND Urology | DX: C61 Malignant neoplasm of prostate (principal) ==

== ENCOUNTER → 2023-10-13 | Outpatient (CLI) | payer MEDICARE, BC | LOC: M PLAIMG 11:15 | PROVIDERS: ATTEND Family Medicine | DX: K80.20 Calculus of gallbladder without cholecystitis without obstruction (principal) ==

== ENCOUNTER → 2023-11-07 | Outpatient (CLI) | payer MEDICARE, BC ==
[~2023-11-07] MED LIST changes: +PROHANCE 279.3MG/ML 15ML VIAL As Ordered ONE; +PROHANCE 279.3MG/ML 5ML VIAL As Ordered ONE
== END ==
LOC: M RAD 12:21
PROVIDERS: ATTEND Family Medicine
DX: K76.89 Other specified diseases of liver (principal); K80.20 Calculus of gallbladder without cholecystitis without obstruction
CPT/HCPCS: 74183; A9576

== ENCOUNTER → 2024-02-01 | Outpatient (REF) | payer MEDICARE, BC ==
[~2024-02-01] MED LIST changes: -PROHANCE 279.3MG/ML 15ML VIAL As Ordered ONE; -PROHANCE 279.3MG/ML 5ML VIAL As Ordered ONE
[2024-02-01 18:28] LABS: HEMATOCRIT 48.9 % (42.0-52.0); HEMOGLOBIN 16.2 g/dl (13.5-17.5); MEAN CORPUSCULAR HEMOGLOBIN 32.9 pg (27.0-33.0); MEAN CORPUSCULAR HGB CONC 33.1 g/dl (32.0-36.5); MEAN CORPUSCULAR VOLUME 99.2 fl (80.0-96.0); PLATELET COUNT, AUTOMATED 317 10^3/uL (150-450); RED BLOOD COUNT 4.93 10^6/uL (4.30-6.10); WHITE BLOOD COUNT 9.5 10^3/uL (4.0-10.0)
[2024-02-01 18:50] LABS: ALKALINE PHOSPHATASE 75 U/L (46-116); ALT/SGPT 36 U/L (7.0-40); AST/SGOT 44 U/L (<34); BILIRUBIN,TOTAL 0.7 MG/DL (0.3-1.2); BLOOD UREA NITROGEN 9 MG/DL (9-23); CALCIUM LEVEL 9.8 MG/DL (8.3-10.6); CARBON DIOXIDE LEVEL 30 MMOL/L (20-31); CHLORIDE LEVEL 103 MMOL/L (98-107); CHOLESTEROL LEVEL 206 MG/DL (<200); CHOLESTEROL RISK RATIO 3.16 (<5); CREATININE FOR GFR 0.87 MG/DL (0.70-1.30); GLOMERULAR FILTRATION RATE > 60.0 (>49); GLUCOSE, FASTING 92 MG/DL (74-106); HDL CHOLESTEROL 65.1 MG/DL (>40); LDL CHOLESTEROL 123.1 MG/DL (<100); NON-HDL-C 140.9 MG/DL; POTASSIUM SERUM 5.4 MMOL/L (3.5-5.1); SODIUM LEVEL 136 MMOL/L (136-145); TOTAL PROTEIN 7.3 G/DL (5.7-8.2); TRIGLYCERIDES LEVEL 89 MG/DL (<150)
== END ==
LOC: M SFHCCLAY 10:39
PROVIDERS: ATTEND Urology
DX: I10 Essential (primary) hypertension (principal); E78.2 Mixed hyperlipidemia; C61 Malignant neoplasm of prostate

== ENCOUNTER → 2024-05-03 | Outpatient (REF) | payer MEDICARE, BC ==
[~2024-05-03] MED LIST changes: -ADV250INH INH; -ADV500INH INH; +ADVA1AER10 INH; +ADVA1AER9 INH
== END ==
LOC: M SFHCCLAY 10:00
PROVIDERS: ATTEND Urology
DX: C61 Malignant neoplasm of prostate (principal)

== ENCOUNTER 2024-06-28 08:25 | Day surgery (SDC) | payer MEDICARE, BC ==
[~2024-06-28] VITALS: Ht 177.8 cm; Wt 85.7 kg
[~2024-06-28 08:25] MED LIST changes: +CEPH500C PO; -FLUT1BLS8; +FLUT1BLS8 INH; +PRED20TA PO
[2024-06-28] MEDS ORDERED: LR 1,000 ML IV SCH ×2 (08:55→12:55)
[2024-06-28] MEDS: HEPARIN SOD (PORCINE) 5000UNITS/ML 1ML VIAL/SYRINGE SQ ONE (11:20)
[2024-06-28] MEDS: ceFAZolin SOD 2 GM in IV 1 EA IV ONE (11:27)
[2024-06-28] MEDS ORDERED: fentaNYL 250 MCG/5 ML INJECTION As Ordered ONE (11:34)
[2024-06-28] MEDS ORDERED: MIDAZOLAM INJ 2MG/2ML VIAL As Ordered ONE (11:34)
[2024-06-28] MEDS ORDERED: LIDOCAINE 2% 100MG/5ML SDV (FOR ANES.) As Ordered ONE (11:34)
[2024-06-28] MEDS ORDERED: ACETAMINOPHEN 1000MG/100ML IV BAG As Ordered ONE (11:34)
[2024-06-28] MEDS ORDERED: ONDANSETRON 4MG 2ML VIAL As Ordered ONE (11:34)
[2024-06-28] MEDS ORDERED: KETOROLAC 60MG 2ML VIAL As Ordered ONE (11:34)
[2024-06-28] MEDS ORDERED: ROCURONIUM BROMIDE 50MG/5ML VIAL As Ordered ONE (11:34)
[2024-06-28] MEDS ORDERED: propofoL 200 MG/20 ML VIAL As Ordered ONE (11:34)
[2024-06-28] MEDS ORDERED: oxyCODONE 5MG TAB PO PRN (12:55)
[2024-06-28] MEDS ORDERED: HYDROMORPHONE HCL 0.5 MG/ 0.5 ML SYRINGE IV PRN (12:55)
[2024-06-28] MEDS ORDERED: ONDANSETRON 4MG 2ML VIAL IV PRN (12:55)
[2024-06-28] MEDS ORDERED: fentaNYL 100 MCG/2 ML INJECTION IV PRN (12:55)
[2024-06-28 14:20] VITALS: BP 176/94; TEMP 96.8; O2SAT 98
== END 2024-06-28 15:00 | disposition home or self-care (01) ==
LOC: M SDC 08:25
PROVIDERS: ATTEND Surgery
DX: K43.2 Incisional hernia without obstruction or gangrene (principal); I10 Essential (primary) hypertension; J44.9 Chronic obstructive pulmonary disease, unspecified; J45.30 Mild persistent asthma, uncomplicated; K51.00 Ulcerative (chronic) pancolitis without complications; R91.8 Other nonspecific abnormal finding of lung field; K76.0 Fatty (change of) liver, not elsewhere classified; Z79.899 Other long term (current) drug therapy; Z79.51 Long term (current) use of inhaled steroids; Z85.46 Personal history of malignant neoplasm of prostate; Z85.828 Personal history of other malignant neoplasm of skin; E73.9 Lactose intolerance, unspecified; M21.372 Foot drop, left foot; K76.89 Other specified diseases of liver; Z87.891 Personal history of nicotine dependence
CPT/HCPCS: 49591; C1781; J0131; J0665; J0690; J1100; J1885; J2250; J2405; J3010